=== PATIENT | female | born 1965 | race Caucasian/White ===

== ENCOUNTER 2024-06-02 05:34 | Day surgery (SDC) | payer SELFPAY, OTHER ==
[2024-06-02] VITALS (12 sets, daily range): BP systolic 110–140; BP diastolic 70–93; PULSE 71–87; RESP 14–16; TEMP 36.1–36.6; O2SAT 96–100; BMI 29.5
--- NOTE | 2024-06-02 05:44 | RAD_ITS ---
INDICATION: PRE OP EXAMINATION/TECHNIQUE: X-RAY - XR Chest 2 Views COMPARISON: No relevant prior comparison study available FINDINGS: LINES/DEVICES: None. LUNGS: No consolidation. No pneumothorax. MEDIASTINUM: Unremarkable. CARDIAC SILHOUETTE: Not enlarged. BONES AND SOFT TISSUES: No acute abnormalities. Degenerative changes dorsal spine. RAD/Chest PA and Lateral IMPRESSION: No evidence of active intrathoracic disease. Electronically Signed: Mi Ventura MD at 7:05 EDT ,
[2024-06-02] MEDS: Lactated Ringers 1,000 ML 15 ML IV (06:33)
--- NOTE | 2024-06-02 06:38 | PCM.PRE.AN2 ---
ASA Classification* ASA Classification ASA Classification: 2 Assessment & Plan Anesthesia* Anesthesia Assessment Anesthesia Assessment: Discussed sedation and/or anesthesia options, risks, benefits, and alternatives with patient/parents/legal guardian/POA. Questions invited. The patient/parents/legal guardian/POA seems to understand and agrees to proceed with anesthesia plan. Reviewed the physical assessment, medical history, allergy history and patient home medications list prior to surgery/procedure/anesthetic and documented any changes. Performed airway and anesthesia risk assessments. 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 When Was Last Pacemaker Check QUESTION #4 FULL TEXT: You/Your Family Experience fever (hyperthermia) with Anesthesia Last Oral Intake Last Oral intake: Last Oral Intake NPO since 00:00 06/02/24 06:29 Meds taken in AM with sips of No 06/02/24 06:29 water? Meds patient instructed to take am of surgery PONV PONV - sales representative facility services: PONV - sales representative facility services Female Yes 05/31/24 08:54 HX of Motion Sickness No 05/31/24 08:54 HX of N/V After Surgery No 05/31/24 08:54 Non-Smoker Yes 05/31/24 08:54 Duration of Surgery greater Yes 05/31/24 08:54 than 60 minutes Number of Risk Factors 3 05/31/24 08:54 PONV Score Moderate Risk 05/31/24 08:54 Height & Weight Height & Weight: Anesthesia: Height & Weight Height 5 ft 2 in 06/02/24 06:29 Weight: 73.4 kg 06/02/24 06:29 Body Mass Index (BMI) 29.5 06/02/24 06:29 Respiratory Assessment Respiratory Assessment - sales representative facility services: Respiratory Tract Infection Hx - sales representative facility services Hx Respiratory Tract Infection No 05/31/24 08:54 STOP Sleep Apnea STOP Sleep Apnea - sales representative facility services: STOP Sleep Apnea - sales representative facility services Hx Hypertension No 05/31/24 08:54 Hx Sleep Apnea No 05/31/24 08:54 CPAP BIPAP Do you snore loudly (louder No 05/31/24 08:54 than talking or can be heard Do you often feel tired/ No 05/31/24 08:54 fatigued/ sleepy during daytime? Has anyone observed you stop No 05/31/24 08:54 breathing during sleep? STOP Results Negative 05/31/24 08:54 QUESTION #5 FULL TEXT : Do you snore loudly (louder than talking or can be heard through closed doors)? 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 Specify any problems Hx of Preganancy in last 3 No 05/31/24 08:54 Months Nurse Filling Out Transfusion VCHRISTIN 05/31/24 08:54 & Questions: Date: 05/31/24 05/31/24 08:54 Time: 08:55 05/31/24 08:54 Patient unable to answer at this time (ie. confused, unrespo /Reproduction History /Reproductive History - sales representative facility services: /Reproductive Hx- sales representative facility services Hx Now No 05/31/24 08:54 Gestational Age (in weeks): EDC: Hx Hx Para Hx Section SAB No 05/31/24 08:54 Active Medications Active Medications: Current Medications Generic Name Dose Route Start Last Admin Trade Name Freq PRN Reason Stop Dose Admin Cefazolin Sodium 2 gm/ Sodium 110 mls @ 150 mls/hr 06/02/24 07:30 Chloride IV 06/02/24 08:13 PREOP ONE Lactated Ringer's 1,000 mls @ 15 mls/hr 06/02/24 06:15 06/02/24 06:33 IV 15 mls/hr .Q48H PAULETTE Administration PFSH Medical History Wears glasses Post-menopausal Easy bruising Glaucoma History of retinal tear Arthritis Home Medications ?Medication ?Instructions ?Recorded ?Last Taken ?Type ascorbic acid (vitamin C) 500 mg 500 mg PO DAILY 05/31/24 Unknown History tablet,extended release (C Complex) brimonidine 0.2 % eye drops 1 drp RIGHT EYE BID 05/31/24 Unknown History cyanocobalamin (vitamin B-12) 1,000 mcg PO QDAY 05/31/24 Unknown History 1,000 mcg tablet (Vitamin B-12) dorzolamide 22.3 mg-timolol 6.8 1 drp RIGHT EYE BID 05/31/24 Unknown History mg/mL eye drops ferrous sulfate 325 mg (65 mg 325 mg PO DAILY 05/31/24 Unknown History iron) tablet eufombgl-xrraad-owilj extract 5 1 cap PO DAILY 05/31/24 Unknown History mg-6 mg-150 mg capsule (Fruit and Vegetable Daily) omega 3-ldm-bnj-fish oil 1,200 mg 1 cap PO DAILY 05/31/24 Unknown History (144 mg-216 mg) capsule (Fish Oil) Allergy/AdvReac Type Severity Reaction Status Date / Time No Known Allergies Allergy Verified 06/02/24 06:26 Family History Father Cancer Brother Hypertension Sister Hypertension Mother Macular degeneration Surgical History Hx of section H/O hernia repair History of surgery on arm Social History Smoking Status: Never smoker alcohol intake: never Review of Systems (Anesthesia) ROS Narrative System reviewed and no additional complaints, except as documented.
--- NOTE | 2024-06-02 07:30 | RAD_ITS ---
CLINICAL HISTORY: BUNIONECTOMY WITH BONE GRAFT HARVEST Date: 06/02/2024 8:16 AM Date of : 1965 Images assigned to this order were provided in conjunction with a surgical procedure performed in the operating room/procedural suite. Please see operative report for details. Fluoroscopic images: 8 Fluoroscopic time: 0.87 seconds Cumulative dose: NA, mGym2; 1.27; mGy Serial imaging during a bunionectomy with osteotomy and plate and screw fixation. Refer to procedural note for complete description. Impressions: 1. Fluoroscopic guidance for surgical planning and confirmation Electronically Signed: Asael Valladares MD at 17:18 EDT , RAD/Foot 2 Views IMPRESSION: undefined
[2024-06-02] MEDS: Cefazolin 2 GM in 0.9% Normal Saline (100mL Bag) 100 ML IV (07:36)
[2024-06-02] MEDS: Bupivacaine 0.5% PF 10 ML VIAL (07:56)
[2024-06-02] MEDS: Bupivacaine Mpf 0.5% 30 ML VIAL (09:22)
--- NOTE | 2024-06-02 09:40 | PCM.POST.ANE ---
Anesthesia: Postop Eval I Current Vital Signs Temperature: 96.9 F Pulse Rate: 73 Blood Pressure: 110/70 Respiratory Rate: 14 Pulse Ox: 96 Oxygen Delivery Method: Room Air Assessment Airway patent: Yes Spontaneous unlabored respirations: Yes Mental status: Asleep nausea: No Vomiting: No Anesthesia Complication: No Fluid Hydration Crystalloid volume administer (ml): 800 Total IV fluid infused: 800 Progress Note Anesthesia document: Postop Eval 1 completed: Yes
--- NOTE | 2024-06-02 09:47 | OP.PCM_ITS ---
Problems Associated Problem List Diagnoses (1) Hallux valgus (acquired), right foot: (2) Pain in right foot: (3) Primary osteoarthritis, right ankle and foot: Report of Operation Date of Procedure: 06/02/24 Pre-Operative Diagnosis: 1) right foot bunionectomy with acute severe IM angle 1,2 elevation and instability to first ray 2) pain right foot 3) osteoarthritis first tarsometatarsal joint Post-Operative Diagnosis: Same Surgery/Procedure Performed:: [place] bunionectomy right foot with [place] and application of bone graft from calcaneus Description of Surgical Findings:: Patient has had long-term acquired hallux valgus deformity which causes her pain and limits her ability to function and perform activities of daily living due to severity. Patient failed conservative treatment. Patient agreed to proceed with surgical correction. Due to significant elevation of IM 1 to first ray instability left plasty was performed. Surgeon: Gustabo Rios parimutuel cashier: None (eleni ratliff, PGY3) Type of Anesthesia: General Special Medications: 40 cc half percent Marcaine plain in a ankle block technique Specimen's removed: None Drains: None Estimated Blood Loss (mL): Minimal Fluids Replaced: Per anesthesia Description of Procedure: Patient brought back to the operating placed completely in supine position on the operating room table. Patient induced under general anesthesia. Right lower extremity thigh tourniquet was applied. Right lower extremity was positioned on blankets and a hip bump was placed under the right lower extremity to knock out any external rotation. Preoperatively 20 cc of half percent Marcaine plain were used in a ring ankle block technique using atraumatic and aseptic technique. Right lower extremity scrubbed prepped draped using typical aseptic fashion. Using fluoroscopic guidance and avoidance of the sural nerve and peroneal nerves a stab incision was made to the lateral wall of the calcaneus this was deepened with hemostats down to the level of the calcaneus and a bone harvesting device was inserted fifth which was provided by [employer] and approximately 5 cc of autograft were harvested from the calcaneal site site was flushed with copious amounts of normal sterile saline then closed using horizontal mattress with 3-0 Prolene. Right lower extremity was elevated exsanguinated and tourniquet was inflated to 300 mmHg Next, just medial to the extensor hallucis longus tendon at the first tarsometatarsal joint a proximately 6 cm incision was drawn just medial to the tendon this was made with a 15 blade through epidermis dermis into subcutaneous tissue blunt dissection was taken down to level of deep fascia and first tarsometatarsal joint capsule any bleeders were identified and cauterized neurovascular structures were identified and protected with atraumatic blunt retraction. A capsulotomy was performed the first tarsometatarsal joint was exposed and mobilized both medially laterally dorsally and plantarly. Next, a linear incision to the lateral aspect of the first metatarsal phalangeal joint was made. This was made with a 15 blade through epidermis dermis into subcutaneous tissue any bleeders identified cauterized blunt dissection was taken down to level of deep fascia the lateral collateral ligaments were transected using a 15 blade the fibular suspensory ligament was transected using a 15 blade additionally additional dissection was required to allow for sesamoid apparatus mobilization via removal of the abductor hallucis tendon at the insertion on the fibular sesamoid. Next it should be noted that the first metatarsal base was mobile for derotation of the sesamoid apparatus Next, as well as reduction of the first metatarsal tarsal phalangeal joint which was n oted be subluxed. Next Lapiplasty was performed using manufactures guidelines using their custom jig saw cut guides and to for prolonged compression rufina 1 dorsally and one medially everything was applied using manufactures guidelines with reduction of the IM 1 to from greater than 20 degrees down to less than 10 degrees confirmed intraoperatively and fluoroscopic imaging there is adequate reduction of the first metatarsal phalangeal joint with performance of this procedure there was significant derotation of the first metatarsal head and sesamoid apparatus back under the first metatarsal head. Should be noted that prior to apposition of the first tarsometatarsal joint the 5 cc of bone graft harvested from the calcaneus was applied to the tarsometatarsal joint to assist bony fusion. All incisional sites were flushed with copious amounts normal sterile saline. Tourniquet was let down. Incisional closure was performed with 3-0 Vicryl using running interlocking stitch to deep fascia. Buried interrupted was performed to subcutaneous layer with 3-0 Vicryl. Skin closure performed with 4-0 Prolene using horizontal mattress to all incisional sites. Incisional sites dressed with Betadine Adaptic 4 x 4's Kerlix and a well-padded AO splint with the foot and ankle held in a rectus position. Patient tolerated procedure well and was transferred to PACU vital signs stable and vascular status intact all digits for further monitoring prior to discharge. Patient tolerated procedure and anesthesia well in apparent satisfactory condition.
[2024-06-02] MEDS: Ketorolac 30 MG/ML Syringe IV (10:23)
--- NOTE | 2024-06-02 15:41 | PCM.POSTANE2 ---
Anesthesia Postop Eval I Sum Postop Eval Completion status Anesthesia document: Postop Eval 1 completed: Yes Anesthesia Postop Eval I Summary Anesthesia Postop Eval I Summary: Anesthesia Postop Eval I: Assessment Summary Airway patent Yes 06/02/24 09:41 Spontaneous unlabored Yes 06/02/24 09:41 respirations Mental status Asleep 06/02/24 09:41 nausea No 06/02/24 09:41 Vomiting No 06/02/24 09:41 Anesthesia Postop Eval I: Fluid Summary Crystalloid volume administer 800 06/02/24 09:41 (ml) Colloids volume administered ( ml) Blood Product volume administered (ml) Total IV fluid infused 800 06/02/24 09:41 Anesthesia Postop Eval I: Summary Notes Anesthesia Complication No 06/02/24 09:41 Anesthesia Complication Comment: Post-operative progress note Anesthesia: Postop Eval II Evaluation Mental status: Awake Pain Level: 0 nausea: No Vomiting: No
== END 2024-06-02 12:23 | disposition home or self-care (01) ==
LOC: SDC 05:41 → AC 05:42
PROVIDERS: PCP Nurse Practitioner Family; Referring Provider Podiatrist; Visit Provider Podiatrist
PROC: (CPT 28270; principal; 2024-06-02 07:15)
DX: M20.11 Hallux valgus (acquired), right foot (principal); M19.071 Primary osteoarthritis, right ankle and foot; M25.374 Other instability, right foot
CPT/HCPCS: 28270; 28740; 20900; 01470; 71046; 73620; 76000; C1713; J7120; J2405